=== PATIENT | female | born 1955 ===

== ENCOUNTER 2018-12-10 09:02 | Emergency (ER) | payer BC ==
[~2018-12-10] VITALS: Ht 170.2 cm; Wt 72.7 kg
[2018-12-10] MEDS ORDERED: ACETAMINOPHEN 650MG/20.3ML CUP NGT STA (09:21)
[2018-12-10] MEDS ORDERED: NORepinephrine 8MG/250 ML (PMX 250 ML IV STA (09:21)
[2018-12-10] MEDS ORDERED: SODIUM CHLORIDE 0.9% 1L BAG IV* STA (09:21)
[2018-12-10] MEDS ORDERED: SUCCINYLCHOLINE CHLORIDE 100 MG/5 ML SYG IV STA (09:21)
[2018-12-10] MEDS ORDERED: ETOMIDATE 20 MG INJ IV STA (09:21)
[2018-12-10] MEDS ORDERED: MIDAZOLAM (DRIP) 50 mg/50 mL 50 ML IV STA (09:21)
[2018-12-10] MEDS ORDERED: CEFEPIME 2GM/50 ML (PMX) 50 ML IVPB STA (09:21)
[2018-12-10 09:24] VITALS: BP 65/51; PULSE 119; Ht 170.2 cm; Wt 72.7 kg
[2018-12-10 09:30] VITALS: RESP 42
[2018-12-10] MEDS ORDERED: VANCOMYCIN 1 GM (PMX) 250 ML IVPB ONE (09:30)
[2018-12-10] MEDS ORDERED: MIDAZOLAM 1 MG/ML 2 ML INJ IV ONE (10:00)
[2018-12-10] MEDS ORDERED: ACETAMINOPHEN 650 MG SUPP PR ONE (10:30)
[2018-12-10] MEDS ORDERED: ACET325T33 PO ×2 (10:42)
[2018-12-10] MEDS ORDERED: DULO60CA6 PO (10:43)
[2018-12-10] MEDS ORDERED: DILT180C94 PO (10:45)
[2018-12-10] MEDS ORDERED: HYDR-3980 PO (10:46)
[2018-12-10] MEDS ORDERED: FOLI-49 PO (10:46)
[2018-12-10] MEDS ORDERED: MET25 PO (10:47)
[2018-12-10] MEDS ORDERED: PRAV20TA63 PO (10:52)
[2018-12-10] MEDS ORDERED: BUDE8.43 NS (10:52)
[2018-12-10] MEDS ORDERED: AMPH5TAB16 PO (10:53)
[2018-12-10] MEDS ORDERED: ADDE20XR PO (10:54)
[2018-12-10] MEDS ORDERED: LEVO500T10 PO (10:55)
[2018-12-10] MEDS ORDERED: ACID1TAB14 PO (10:55)
[2018-12-10] MEDS ORDERED: VORI50TA PO (11:00)
[2018-12-10] MEDS ORDERED: CHOL500010 PO (11:01)
[2018-12-10] MEDS ORDERED: UBID100C24 PO (11:02)
[2018-12-10] MEDS ORDERED: MULT-105 PO (11:02)
[2018-12-10] MEDS ORDERED: DOCU-144 PO (11:03)
[2018-12-10] MEDS ORDERED: AMIN30LI PO (11:03)
[2018-12-10] MEDS ORDERED: FER325 PO (11:03)
[2018-12-10] MEDS ORDERED: DULO30CA45 PO (11:06)
[2018-12-10] MEDS ORDERED: HEPA500021 IJ (11:07)
--- NOTE | 2018-12-10 12:49 | ERD ---
ER Documentation Chief Complaint Chief Complaint ALOC SINCE 0600 TODAY. HPI This is a 63-year-old female that presented to the emergency department brought in by paramedics from [facility]. The patient had presented to the emergency department with severe difficulty breathing and febrile. The patient has had multiple previous hospitalizations diagnosed with severe sepsis and septic shock recently at [facility]. The patient has had a previous John fundoplication for hiatal hernia repair. She also had a history of hepatic abscess. The patient's states that he was there yesterday evening. She has appeared slightly more confused. She developed a temperature of 100.3 just prior to arrival. No antipyretics have been given. ROS All systems reviewed and are negative except as per history of present illness. Medications Home Meds Reported Medications Heparin Sodium,Porcine/Pf (HEPARIN SOD 5,000 UNIT/ 0.5 ML) 5,000 Unit/0.5 Ml Vial, 5000 UNIT IJ Q12H, VIAL 12/10/18 Duloxetine Hcl* (Cymbalta*) 30 Mg Capsule.dr, 90 MG PO DAILY, CAP 12/10/18 Amino Acids/Protein Hydrolys (PRO-STAT LIQUID) 30 Ml Liquid.pkt, 30 ML PO DAILY SUGAR FREE 12/10/18 Ferrous Sulfate* (Ferrous Sulfate*) 325 Mg Tabec, 325 MG PO DAILY, TAB 12/10/18 Docusate Sodium* (Colace*) 100 Mg Capsule, 100 MG PO BID, #60 CAP 12/10/18 Multivitamin with Minerals (Multivitamins with Minerals) 1 Each Tablet, 1 EACH PO DAILY, TAB 12/10/18 Ubidecarenone (Coq-10) 100 Mg Capsule, 100 MG PO BID, CAP 12/10/18 Cholecalciferol (Vitamin D3) 5,000 Unit Tablet, 5000 UNIT PO DAILY, TAB 12/10/18 Voriconazole* (Voriconazole*) 50 Mg Tablet, 50 MG PO Q12, TAB FOR 20 DAYS,START DATE 12/04/18 12/10/18 Lactobacillus Acidoph/Bulgaricus* (Floranex*) 1 Each Tablet, 1 TAB.CHEW PO TID, TAB.CHEW 12/10/18 Levofloxacin* (Levofloxacin*) 500 Mg Tablet, 500 MG PO DAILY, TAB FOR 20 DAYS,START DATE 12/04/18 12/10/18 Amphet Wav-Cuuzgm-C-Amphet (Adderall XR) 20 Mg Cap.sr.24h, 20 MG PO QAM, CAP 12/10/18 Amphetamine Sulfate (Evekeo) 5 Mg Tablet, 5 MG PO QAM, TAB 12/10/18 Pravastatin Sodium* (Pravastatin Sodium*) 20 Mg Tablet, 20 MG PO HS, TAB 12/10/18 Budesonide (Rhinocort Allergy) 8.43 Ml [place].pump, 8.43 ML NS BID 12/10/18 Methotrexate* (Methotrexate*) 2.5 Mg Tab, 7.5 MG PO Q WED, TAB 12/10/18 Hydrocodone/Acetaminophen ([place] 10-325 Tablet) 1 Each Tablet, 1 EACH PO TID, TAB 12/10/18 Folic Acid* (Folic Acid*) 1 Mg Tablet, 2 MG PO DAILY, TAB TAKE DAILY EXCEPT WED 12/10/18 Diltiazem Hcl* (Diltiazem XT) 180 Mg Capsule.er, 180 MG PO DAILY, #30 CAP 12/10/18 Acetaminophen* (Tylenol*) 325 Mg Tablet, 650 MG PO NEEDED PRN for BEFOR TREATMENT, TAB 12/10/18 Acetaminophen* (Tylenol*) 325 Mg Tablet, 650 MG PO Q4H PRN for MILD PAIN LEVEL 1-3, TAB AND FEVER 12/10/18 Discontinued Reported Medications Duloxetine Hcl* (Cymbalta*) 60 Mg Capsule.dr, 90 MG PO DAILY, CAP 12/10/18 Allergies Allergies: Coded Allergies: abatacept (Verified Allergy, Unknown, 12/10/18) bupropion (Verified Allergy, Unknown, 12/10/18) infliximab (Verified Allergy, Unknown, 12/10/18) iodixanol (Verified Allergy, Unknown, 12/10/18) lisdexamfetamine (Verified Allergy, Unknown, 12/10/18) PMhx/Soc History of Surgery: Yes Anesthesia Reaction: No Hx Neurological Disorder: Yes (migraines) Hx Respiratory Disorders: No Hx Cardiac Disorders: Yes (afib, htn, tricuspid valve insufficiency, hyperlipidemia) Hx Psychiatric Problems: Yes (depression, anxiety, adhd) Hx Miscellaneous Medical Probl: Yes (anemia, gerd, ) Hx Alcohol Use: No Hx Substance Use: No Hx Tobacco Use: No Smoking Status: Never smoker Physical Exam Vitals Vital Signs Date Temp Pulse Resp B/P (MAP) Pulse Ox O2 O2 Flow FiO2 Time Delivery Rate 12/10/18 127 42 99 100 09:30 12/10/18 104.0 119 32 65/51 (56) 71 09:24 Physical Exam Constitutional:Well-developed. Well-nourished. Patient severe respiratory distress HEENT:Normocephalic. Atraumatic.Pupils were equal round reactive to light. Moist mucous membranes.No tonsillar exudates. Very poor oral dentition. Conjunctival pallor Neck: No nuchal rigidity. No lymphadenopathy. No posterior cervical spine tenderness or step-offs. Respiratory: Patient was using accessory muscles of respiration. Diminished breath sounds heard bilaterally. Cardiovascular: Tachycardic with regular rhythm.No murmurs. No rubs were appreciated.S1, S2 normal. Distal pulses are palpable 2+ bilaterally. GI: Abdomen was soft. Nontender. Non Distended. No pulsatile abdominal masses or bruits. No rebound. No guarding. Hypoactive bowel sounds Muscle skeletal: Patient did not withdraw to pain in the upper and lower extremities. Flaccid paralysis of the bilateral upper extremities. Does not follow verbal commands of muscular testing unable to be performed Skin: Warm to the touch. Diaphoretic. No petechia, no purpura. No lesions on the palms or the soles of the feet. No maculopapular rash. NEURO: Patient did not withdraw to pain. Patient was gasping for air. Gait not observed. Aphasic. Result Diagram: 12/10/1892012/10/18920 Results 24 hrs Laboratory Tests Test 12/10/18 09:21 12/10/18 09:22 12/10/18 09:38 12/10/18 10:18 White Blood Count 17.8 10^3/ul Red Blood Count 2.64 10^6/ul Hemoglobin 8.1 g/dl Hematocrit 24.6 % Mean Corpuscular 93.2 fl Volume Mean Corpuscular 30.7 pg Hemoglobin Mean Corpuscular 32.9 g/dl Hemoglobin Concen t Red Cell 18.3 % Distribution Width Platelet Count 73 10^3/UL Mean Platelet 10.8 fl Volume Immature 2.500 % Granulocytes % Neutrophils % % Segmented 71 % Neutrophils % (Manual) Band Neutrophils 21 % % (Manual) Lymphocytes % % Lymphocytes % 3 % (Manual) Reactive 2 % Lymphocytes % (Manual) Monocytes % % Monocytes % 2 % (Manual) Eosinophils % % Basophils % % Plasma Cells % 1 % (manual) Nucleated Red 0.0 /100WBC Blood Cells % Immature 0.450 10^3/ul Granulocytes # Neutrophils # 10^3/ul Neutrophils # 13.3 10^3/ul (Manual) Band Neutrophils 3.7 10^3/ul # Lymphocytes 0.5 10^3/ul (Manual) Lymphocytes # 10^3/ul Reactive 0.3 10^3/ul Lymphocytes # Monocytes # 10^3/ul Monocytes # 0.3 10^3/ul (Manual) Eosinophils # 10^3/ul Basophils # 10^3/ul Plasma Cells # 0.1 10^3/ul (manual) Nucleated Red 10^3/ul Blood Cells # Platelet Estimate DECREASED Giant Platelets 4 % Polychromasia 1+ Poikilocytosis 1+ Anisocytosis 1+ Microcytosis 1+ Prothrombin Time 17.1 Sec Prothrombin Time 1.3 Ratio INR International 1.38 Normalized Ratio Activated 61.4 Sec Partial Thrombopl ast Time Sodium Level 133 mmol/L Potassium Level 4.7 mmol/L Chloride Level 98 mmol/L Carbon Dioxide 14 mmol/L Level Anion Gap 21 Blood Urea 26 mg/dl Nitrogen Creatinine 1.32 mg/dl Est Glomerular 41 mL/min Filtrat Rate mL/min Glucose Level 105 mg/dl Calcium Level 9.4 mg/dl Total Bilirubin 5.0 mg/dl Direct Bilirubin 1.00 mg/dl Indirect 4.0 mg/dl Bilirubin Aspartate Amino 209 IU/L Transf (AST/SGOT) Alanine 26 IU/L Aminotransferase (ALT/SGPT) Alkaline 120 IU/L Phosphatase Troponin I 0.393 ng/ml Total Protein 6.4 g/dl Albumin 3.0 g/dl Globulin 3.40 g/dl Albumin/Globulin 0.88 Ratio Amylase Level 238 U/L Lipase 395 U/L POC Venous 10.0 mmol/L Lactate Blood Gas Blood arterial Specimen Source Arterial Blood 12/10/2018 9:30:37 Date Drawn AM Arterial Blood pH 7.291 (Temp corrected) Arterial Blood 22.7 mmhg pCO2 (Temp correct) Arterial Blood 318.2 mmHG pO2 (Temp corrected) Arterial Blood 10.6 mmol/L HCO3 Arterial Blood -14.2 mmol/L Base Excess Arterial Blood 99.5 mmHG Oxygen Saturation Catalino Test ACCEPTAB Arterial Blood Right Radial Gas Puncture Site Arterial 0.8 % Blood Carboxyhemo globin Arterial Blood 0.8 % Methemoglobin Blood Gas A-a O2 369.5 mmHg Differential Oxyhemoglobin 97.9 % Percent Blood Gas 38.0 C Temperature Blood Gas 16.0 Respiration Rate Blood Gas VENT - AC Modality FiO2 100.0 % Blood Gas Tidal 500.0 mL Volume Blood Gas High 5.0 cmH2O PEEP Setting Blood Gas Low 5.0 cmH2O PEEP Setting Blood Gas DR. DE LA ROSA Critical Value Read Back Blood Gas NAZ RT Notified Whom Blood Gas 12/10/2018 9:45:17 Notified Time AM Bedside Glucose 96 mg/dL Current Medications Medications Dose Sig/Tami Start Time Status Last (Trade) Ordered Route PRN Stop Time Admin Dose Reason Admin Sodium 2,400 ml BOLUS OVER 2 12/10/18 DC 12/10/18 Chloride HOURS STAT 09:21 12/10/18 09:34 (NS) IV* 09:25 650 mg ONCE STAT 12/10/18 DC Acetaminophen NGT 09:21 12/10/18 (Tylenol 10:31 Liquid) Cefepime HCl 50 ml @ ONCE STAT 12/10/18 DC 12/10/18 100 mls/hr IVPB 09:21 12/10/18 09:37 09:50 Vancomycin 250 ml @ ONCE ONCE 12/10/18 DC HCl 125 mls/hr IVPB 09:30 12/10/18 11:29 100 mg ONCE STAT 12/10/18 DC Succinylcholi IV 09:21 12/10/18 ne Chloride 09:25 (Anectine Syringe) Etomidate 10 mg ONCE STAT 12/10/18 DC (Amidate) IV 09:21 12/10/18 09:25 Midazolam 50 ml @ 3 ONCE STAT 12/10/18 HCl mls/hr IV 09:21 12/11/18 02:00 250 ml @ ONCE STAT 12/10/18 12/10/18 Norepinephrin 7.5 mls/hr IV 09:21 12/11/18 10:02 e 18:40 Midazolam 2 mg ONCE ONCE 12/10/18 DC HCl IV 10:00 12/10/18 (Versed) 10:36 650 mg ONCE ONCE 12/10/18 DC Acetaminophen DC 10:30 12/10/18 (Tylenol 10:36 Supp) Procedures/MDM This is a 63-year-old female that presented to the emergency department severe respiratory distress, hypotensive tachycardic and hypoxic. The patient was immediately placed in a potline monitor continuous pulse oximetry and IV access was established by nursing staff. The patient was placed on high flow supplemental oxygen however she still remained hypoxic at 80%. 2 large-bore catheters have been placed. At this time I did feel the patient required intubation for impending airway failure. RSI was performed. The patient received 10 mg of etomidate for sedation followed by 100 mg of succinylcholine. A 7.50 endotracheal tube was seen in past going through the cords by myself. The tube was confirmed to be in good placement with equal and symmetrical breath sounds are bilaterally, condensation seen within the tube and good capnometry change x6. A chest radiograph ordered and reviewed by myself indicated the endotracheal tube in good position with a incidental finding of a left nodule. 12 Lead EKG tracing ordered and reviewed by myself showed: Sinus tachycardia 107 bpm and no arrhythmia. DC interval normal. QRS duration widened at 120 ms. Right bundle branch block No ST segment elevation No ST segment depression. No changes consistent with acute ischemia. The patient had a significantly elevated lactic acid. Patient was treated for septic shock. Patient's infectious symptoms have not stabilized and the patient is at risk of rapid decompensation. The patient will be admitted for careful hydration, antibiotic therapy, and infectious source control. Severe Sepsis Assessment: Infectious Source: Aspiration pneumonia End organ damage indicated by: [Lactate > 2.0 mmol/L Hypotension( SBP < 90 or >40 mmHG drop or MAP < 65) Acute Resp Failure (sat < 92% w/o oxygen) Perennial House Manager > 2.0 INR > 1.5 Plt < 100 Bili > 2] Severe Sepsis Managment: Blood Cultures X 2 before broad spectrum antibiotics initiated within 3 hours of recognition. 30 ml/kg NS bolus Completed Initial Lactate: 10.0 Repeat Lactate patient before repeat bilirubin could be performed Septic Shock Assessment (1 hour post 30 ml/kg fluid bolus): Hypotension (SBP < 90 or 40 mmHg drop, MAP < 65): Yes Lactic acid > 4.0 Yes Perfusion Reassessment for Septic Shock: Not able to be performed as patient had a CODE BLUE and at 1023 Hypotensive Treatment (not required for isolated lactic acid elevation): Comfort Care: No Central LIne: Left Vasopressor started: norepinephrine The patient was critically ill and required central venous access. The patient was unable to consent as this was an emergent procedure as the patient became hypotensive and after was prepped and draped in a sterile fashion. Time out performed and the left internal jugular vein was cannulated using the Seldinger technique after anesthesia administered with 1% lidocaine locally. A triple l umen catheter used. The guidewire was easily thread into the vessel. The guidewire was retrieved, removed and disposed of. All three ports steve back venous blood and flushed easily. The line was secured in place with 2 simple interrupted sutures and a biostat was applied over the area in inoculation. The patient tolerated the procedure well with no complications. ED Ultrasound: Central line placed by me using concurrent ultrasound guidance. Real time image archived in the medical record confirms vascular anatomy I considered further perfusion assessment with CVP measurement, SCVO2, bedside ultrasound volume assessment, passive leg raise, trial of further fluid bolus. And preceded with IV fluids and central line The patient had an elevated troponin. The patient had cooling measures performed initially when she arrived and she was severely hypothermic. She received rectal acetaminophen and ice packs placed. I was at bedside with nursing staff and the patient became bradycardic and hypotensive despite being on levo fed. At this time she became pulseless. The patient had ACLS protocol followed. The patient was unable to have return of spontaneous circulation and subsequently time of was called at 10:23 AM. There is no reversible causes to the patient's acute cardiopulmonary arrest. The patient had a bedside fast ultrasound performed by myself that was normal. At time of the patient was with no cardiac activity on bedside ultrasound performed by myself, pupils were fixed and dilated, no spontaneous ventilatory effort. The patient's and son were informed of the patient's and social work support was provided. Critical Care: Time: 100 minutes Treatments/Evaluations: Close monitoring and treatment of unstable vital signs, cardiorespiratory, and neurologic status, while maintaining tight balance of fluid, respiratory, and cardiac interventions. Time does not include performing any of the above billable procedures. Departure Diagnosis: Primary Impression: Septic shock Additional Impression: Cardiopulmonary arrest Condition: Serious EJ DE LA ROSA MD December 10, 2018 12:11
== END 2018-12-10 14:30 | disposition expired ==
LOC: E/R 09:02
DX: A41.9 Sepsis, unspecified organism (principal); R65.21 Severe sepsis with septic shock; I46.9 Cardiac arrest, cause unspecified; R40.2142 Coma scale, eyes open, spontaneous, at arrival to emergency department; R40.2222 Coma scale, best verbal response, incomprehensible words, at arrival to emergency department; R40.2342 Coma scale, best motor response, flexion withdrawal, at arrival to emergency department; I10 Essential (primary) hypertension
CPT/HCPCS: 31500; 36415; 36556; 36600; 71045; 76937; 80053; 82150; 82803; 82962; 83605; 83690; 84484; 85025; 85610; 85730; 87040; 92950; 93005; 94002; 96374; 99291; J0692; J2250; J3370; J7030